=== PATIENT | female | born 1980 | race American Indian/Alaskan Native ===

== ENCOUNTER 2019-01-14 18:55 | Emergency (ER) | payer OTHER ==
[~2019-01-14] VITALS: Ht 154.9 cm; Wt 42.6 kg
== END 2019-01-14 19:45 | disposition home or self-care (01) ==
LOC: ER 18:55
DX: S01.322A Laceration with foreign body of left ear, initial encounter (principal); W45.8XXA Other foreign body or object entering through skin, initial encounter; Y93.89 Activity, other specified; Y92.89 Other specified places as the place of occurrence of the external cause; Y99.8 Other external cause status

== ENCOUNTER 2023-01-05 09:56 | Outpatient (CLI) | payer OTHER | END 2023-01-05 11:01 | disposition home or self-care (01) | LOC: NST 09:56 | PROVIDERS: ATTEND Obstetrics & Gynecology Maternal & Fetal Medicine | DX: Z34.83 Encounter for supervision of other normal pregnancy, third trimester (principal) ==

== ENCOUNTER 2023-01-13 11:05 | Outpatient (CLI) | payer OTHER | END 2023-01-13 12:26 | disposition home or self-care (01) | LOC: NST 11:05 | PROVIDERS: ATTEND Obstetrics & Gynecology Maternal & Fetal Medicine | DX: Z34.83 Encounter for supervision of other normal pregnancy, third trimester (principal) ==

== ENCOUNTER 2023-02-23 12:42 | Outpatient (CLI) | payer OTHER | END 2023-02-23 12:53 | disposition home or self-care (01) | LOC: NST 12:42 | PROVIDERS: ATTEND Obstetrics & Gynecology Maternal & Fetal Medicine | DX: Z34.83 Encounter for supervision of other normal pregnancy, third trimester (principal) ==

== ENCOUNTER 2023-02-28 08:48 | Inpatient (IN) | payer OTHER ==
[~2023-02-28] VITALS: Ht 154.9 cm; Wt 1.8 kg
[2023-02-28] MEDS ORDERED: HYDROCHLOROTH12.5 MG (11:34)
[2023-02-28] MEDS ORDERED: SYNTHROID88 MCG (11:35)
[2023-02-28] MEDS ORDERED: NIFEDIPINE ER30 M1 (11:35)
[2023-03-03] MEDS ORDERED: OXYC1TAB9 PO (07:58)
[2023-03-03] MEDS ORDERED: KETO10TA2 PO (07:58)
== END 2023-03-03 18:01 | disposition home or self-care (01) | DRG 788 ==
LOC: OB/GYN 08:48 → O/R 08:48 → LDR 08:48 → O/R 10:08 → OB/GYN 12:15
PROVIDERS: ADMIT Obstetrics & Gynecology; ATTEND Obstetrics & Gynecology
PROC: 4A1HXCZ Monitoring of Products of Conception, Cardiac Rate, External Approach (ICD-10-PCS; 2023-02-28)
PROC: 10D00Z1 Extraction of Products of Conception, Low, Open Approach (ICD-10-PCS; principal; 2023-02-28 11:15)
DX: O60.14X2 Preterm labor third trimester with preterm delivery third trimester, fetus 2 (principal); O32.8XX2 Maternal care for other malpresentation of fetus, fetus 2; O30.043 Twin pregnancy, dichorionic/diamniotic, third trimester; Z3A.34 34 weeks gestation of pregnancy; Z37.2 Twins, both liveborn; Z20.822 Contact with and (suspected) exposure to COVID-19